=== PATIENT | male | born 1945 | race Caucasian/White ===

== ENCOUNTER → 2016-07-16 | Outpatient (CLI) | payer MEDICARE ==
[2016-07-16 19:00] LABS: MEAN CORPUSCULAR HEMOGLOBIN 31.8 pg (27.0-33.0); MEAN CORPUSCULAR HGB CONC 31.9 g/dl (32.0-36.5); MEAN CORPUSCULAR VOLUME 99.8 fl (80.0-96.0); RED CELL DISTRIBUTION WIDTH 15.3 % (11.5-14.5); WHITE BLOOD COUNT 4.8 K/mm3 (4.0-10.0)
[2016-07-16 19:11] LABS: ANION GAP 7 MEQ/L (8-16); BLOOD UREA NITROGEN 12 MG/DL (7-18); CALCIUM LEVEL 8.7 MG/DL (8.8-10.2); CARBON DIOXIDE LEVEL 32 MEQ/L (21-32); CHLORIDE LEVEL 104 MEQ/L (98-107); CREATININE FOR GFR 0.91 MG/DL (0.70-1.30); GLOMERULAR FILTRATION RATE > 60.0 (>42); GLUCOSE, FASTING 99 MG/DL (83-110); POTASSIUM SERUM 4.4 MEQ/L (3.5-5.1); SODIUM LEVEL 143 MEQ/L (136-145)
== END ==
LOC: M SMT 10:31
PROVIDERS: ATTEND Internal Medicine Cardiovascular Disease
DX: R07.9 Chest pain, unspecified (principal)

== ENCOUNTER → 2016-08-28 | Outpatient (CLI) | payer MEDICARE ==
--- NOTE | 2016-09-03 08:20 | SLEEPCENT ---
DATE OF PROCEDURE: 08/28/2016 ORDERED BY: Nadiya Mcmanus NP Nocturnal polysomnography was performed for evaluation of sleep apnea syndrome symptoms in this patient with a history of nonrestorative sleep, comorbidities of hypertension and atrial fibrillation. 8 hours and 7 minutes of data were reviewed. There were only 132 minutes of sleep identified. Sleep latency was prolonged at 64 minutes. Rapid eye movement (REM) was prolonged at 155 minutes. Sleep architecture was poor with two brief REM periods and prolonged periods of wake over the course of the test. Overall sleep efficiency was thereby reduced at 27.9%. There was very limited REM time and no N3 sleep was seen. The patient's electrocardiogram (EKG) showed an irregular rhythm. Underlying rhythm appeared to be sinus. Frequent ectopy was noted. Average heart rate 45 beats per minute. Heart rate ranged 35-55 beats per minute. Electroencephalogram (EEG) showed fairly normal waveforms for awake and sleep stages. No focal events were identified. There were only 6 respiratory events identified of 10 seconds in duration or greater for an apnea hypopnea index of 2.7. The events were not exclusive to sleep stage nor posture. Snoring was noted at interval and respiratory related arousals occurred 3.2 times per hour. Limb activity was quite prominent during the intervals of sleep and limb movement arousals were borderline at 6.3. IMPRESSION: Equivocal nocturnal polysomnography with snoring and some limb activity. RECOMMENDATION: Given the limited data available, repeat testing is recommended.
== END ==
LOC: M SLEEP 19:36
PROVIDERS: ATTEND Nurse Practitioner Adult Health
DX: G47.30 Sleep apnea, unspecified (principal)

== ENCOUNTER → 2016-10-03 | Outpatient (CLI) | payer MEDICARE ==
[2016-10-03 13:33] LABS: MEAN CORPUSCULAR HGB CONC 32.9 g/dl (32.0-36.5); MEAN CORPUSCULAR VOLUME 100.3 fl (80.0-96.0); RED CELL DISTRIBUTION WIDTH 15.3 % (11.5-14.5); WHITE BLOOD COUNT 4.8 K/mm3 (4.0-10.0)
[2016-10-03 13:57] LABS: ALBUMIN 3.6 GM/DL (3.2-5.2); ALBUMIN/GLOBULIN RATIO 1.24 (1.00-1.93); ALKALINE PHOSPHATASE 63 U/L (45-117); ALT/SGPT 30 U/L (12-78); ANION GAP 7 MEQ/L (8-16); AST/SGOT 26 U/L (15-37); BILIRUBIN,TOTAL 0.8 MG/DL (0.2-1.0); BLOOD UREA NITROGEN 13 MG/DL (7-18); CALCIUM LEVEL 8.3 MG/DL (8.8-10.2); CARBON DIOXIDE LEVEL 32 MEQ/L (21-32); CHLORIDE LEVEL 103 MEQ/L (98-107); CREATININE FOR GFR 0.91 MG/DL (0.70-1.30); GLOMERULAR FILTRATION RATE > 60.0 (>42); GLUCOSE, FASTING 108 MG/DL (83-110); POTASSIUM SERUM 4.2 MEQ/L (3.5-5.1); SODIUM LEVEL 142 MEQ/L (136-145); TOTAL PROTEIN 6.5 GM/DL (6.4-8.2)
== END ==
LOC: M SMT 09:48
PROVIDERS: ATTEND Internal Medicine Cardiovascular Disease
DX: I48.1 Persistent atrial fibrillation (principal); I25.709 Atherosclerosis of coronary artery bypass graft(s), unspecified, with unspecified angina pectoris

== ENCOUNTER → 2017-02-12 | Outpatient (CLI) | payer MEDICARE ==
--- NOTE | 2017-02-12 12:08 | REP ---
Chest two views HISTORY: COPD Comparison: 02/13/2015 The lungs are clear. The heart is normal in size. The pulmonary vasculature is normal in appearance. The bony structure is intact. IMPRESSION: No acute disease. Signed by Keegan Greer MD 02/12/2017 12:00 P
== END ==
LOC: M RAD 11:47
PROVIDERS: ATTEND Nurse Practitioner Adult Health
DX: J44.9 Chronic obstructive pulmonary disease, unspecified (principal)

== ENCOUNTER → 2018-10-21 | Outpatient (CLI) | payer MEDICARE ==
--- NOTE | 2018-10-21 11:13 | REP ---
PA and lateral chest: The lung haong are clear. The cardiac size is normal. The emmanuel, mediastinum, and skeletal structures are unremarkable. There has been interval placement of a two chamber pacemaker. Impression: Pacemaker. Otherwise, essentially negative PA and lateral chest. Electronically Signed by Kale Rao MD 10/21/2018 11:05 A
== END ==
LOC: M SMT 09:48
PROVIDERS: ATTEND Nurse Practitioner Adult Health
DX: Z87.09 Personal history of other diseases of the respiratory system (principal); Z95.0 Presence of cardiac pacemaker

== ENCOUNTER → 2020-06-27 | Outpatient (CLI) | payer MEDICARE ==
[~2020-06-27] MED LIST: ATOR1TAB21 PO; ELIQ5TAB PO; FERR1TAB8 PO; FLEC25TA PO; FLUT1BLS5 IH; GABA-843 PO; INCR1INH IH; METO1TAB87 PO; OMEP-218 PO; TERA5CAP3 PO
[2020-06-27 13:01] LABS: BASO % 0.4 % (0.0-1.0); EOS % 0.4 % (0.0-3.0); HEMATOCRIT 35.3 % (42.0-52.0); HEMOGLOBIN 11.4 g/dl (13.5-17.5); LYMPH # 1.6 10^3/uL (1.5-5.0); MEAN CORPUSCULAR HEMOGLOBIN 31.8 pg (27.0-33.0); MEAN CORPUSCULAR HGB CONC 32.3 g/dl (32.0-36.5); MEAN CORPUSCULAR VOLUME 98.6 fl (80.0-96.0); MONO # 0.6 10^3/uL (0.0-0.8); MONO % 11.8 % (0.0-5.0); NEUTROPHILS # 3.1 10^3/uL (1.5-8.5); NEUTROPHILS % 57.7 % (36.0-66.0); PLATELET COUNT, AUTOMATED 200 10^3/uL (150-450); RED BLOOD COUNT 3.58 10^6/uL (4.30-6.10); WHITE BLOOD COUNT 5.4 10^3/uL (4.0-10.0)
[2020-06-27 13:26] LABS: ALBUMIN 3.5 GM/DL (3.2-5.2); ALT/SGPT 37 U/L (12-78); BILIRUBIN,TOTAL 0.7 MG/DL (0.2-1.0); BLOOD UREA NITROGEN 12 MG/DL (7-18); CALCIUM LEVEL 7.7 MG/DL (8.8-10.2); CARBON DIOXIDE LEVEL 35 MEQ/L (21-32); CHLORIDE LEVEL 103 MEQ/L (98-107); CHOLESTEROL LEVEL 147 MG/DL (<200); CHOLESTEROL RISK RATIO 2.194 (<5); CREATININE FOR GFR 0.84 MG/DL (0.70-1.30); GLOMERULAR FILTRATION RATE > 60.0 (>42); GLUCOSE, FASTING 99 MG/DL (70-100); HDL CHOLESTEROL 67 MG/DL (>40); LDL CHOLESTEROL 68 MG/DL (<100); MAGNESIUM LEVEL 0.9 MG/DL (1.8-2.4); NON-HDL-C 80 MG/DL; NT-PRO BNP 1336 PG/ML (<450); POTASSIUM SERUM 3.9 MEQ/L (3.5-5.1); SODIUM LEVEL 143 MEQ/L (136-145); TOTAL PROTEIN 6.8 GM/DL (6.4-8.2); TRIGLYCERIDES LEVEL 58 MG/DL (<150)
== END ==
LOC: M PLALAB 11:13
PROVIDERS: ATTEND Internal Medicine Cardiovascular Disease
DX: I50.42 Chronic combined systolic (congestive) and diastolic (congestive) heart failure (principal); E78.2 Mixed hyperlipidemia

== ENCOUNTER 2020-06-29 14:40 | Observation (INO) | payer MEDICARE ==
[~2020-06-29] VITALS: Ht 182.9 cm; Wt 83.7 kg
[2020-06-29] MEDS ORDERED: MAG SULF 1GM/100ML (MAG RUN) 1 GM in IV 1 EA IV ONE ×2 (15:45→17:00)
--- NOTE | 2020-06-29 15:57 | REP ---
INDICATION: CHEST PAIN. COMPARISON: October 21, 2018. TECHNIQUE: Portable upright AP chest radiograph. FINDINGS: Lungs are well inflated and clear. A pacemaker is seen in the right heart view of the left side. Heart is not felt to be enlarged. Pulmonary vasculature is not increased. Pleural angles are sharp. No acute bony abnormality is seen.. IMPRESSION: No active disease. Pacemaker in place.. <Electronically signed by Chicho Monroy > 06/29/20 [id number]
[2020-06-29 16:16] LABS: BASO % 0.4 % (0.0-1.0); EOS % 0.6 % (0.0-3.0); HEMATOCRIT 31.3 % (42.0-52.0); LYMPH # 1.6 10^3/uL (1.5-5.0); LYMPH % 30.4 % (24.0-44.0); MEAN CORPUSCULAR HEMOGLOBIN 30.7 pg (27.0-33.0); MEAN CORPUSCULAR HGB CONC 31.9 g/dl (32.0-36.5); MONO # 0.6 10^3/uL (0.0-0.8); MONO % 10.6 % (0.0-5.0); NEUTROPHILS # 3.1 10^3/uL (1.5-8.5); NEUTROPHILS % 57.4 % (36.0-66.0); PLATELET COUNT, AUTOMATED 192 10^3/uL (150-450); RED BLOOD COUNT 3.26 10^6/uL (4.30-6.10); WHITE BLOOD COUNT 5.3 10^3/uL (4.0-10.0)
[2020-06-29] MEDS ORDERED: TERA5CAP3 PO (16:46)
[2020-06-29] MEDS ORDERED: METO1TAB87 PO (16:46)
[2020-06-29] MEDS ORDERED: OMEP-218 PO (16:46)
[2020-06-29] MEDS ORDERED: INCR1INH IH (16:46)
[2020-06-29] MEDS ORDERED: ATOR1TAB21 PO (16:46)
[2020-06-29] MEDS ORDERED: FLUT1BLS5 IH (16:46)
[2020-06-29] MEDS ORDERED: ELIQ5TAB PO (16:46)
[2020-06-29] MEDS ORDERED: GABA-843 PO (16:46)
[2020-06-29] MEDS ORDERED: FLEC25TA PO (16:46)
[2020-06-29 16:52] LABS: ALBUMIN 3.3 GM/DL (3.2-5.2); ALT/SGPT 38 U/L (12-78); BILIRUBIN,DIRECT 0.3 MG/DL (0.0-0.2); BILIRUBIN,TOTAL 0.7 MG/DL (0.2-1.0); BLOOD UREA NITROGEN 16 MG/DL (7-18); CALCIUM LEVEL 7.4 MG/DL (8.8-10.2); CARBON DIOXIDE LEVEL 28 MEQ/L (21-32); CHLORIDE LEVEL 108 MEQ/L (98-107); CK-MB VALUE MASS 1.6 NG/ML (<3.6); CPK CREATINE PHOSPHOKINASE 127 U/L (39-308); CREATININE FOR GFR 0.96 MG/DL (0.70-1.30); GLOMERULAR FILTRATION RATE > 60.0 (>42); GLUCOSE, FASTING 102 MG/DL (70-100); LIPASE 173 U/L (73-393); MAGNESIUM LEVEL 0.9 MG/DL (1.8-2.4); MB/CK RELATIVE INDEX 1.26 (< OR =4); NT-PRO BNP 468 PG/ML (<450); POTASSIUM SERUM 3.5 MEQ/L (3.5-5.1); SODIUM LEVEL 142 MEQ/L (136-145); TOTAL PROTEIN 6.2 GM/DL (6.4-8.2); TROPONIN I < 0.02 NG/ML (< 0.10)
[2020-06-29] MEDS ORDERED: POTASSIUM CHLORIDE 10 MEQ SR TABLET PO ONE (17:00)
[2020-06-29] MEDS ORDERED: IPRATROPIUM 0.5MG/ALBUTEROL 2.5MG INH SOL UD 3ML (DUONEB) NEB PRN (18:15)
--- NOTE | 2020-06-29 18:43 | HPEPDOC ---
General Date of Admission Jun 29, 2020 at 14:41 Date of Service: Jun 29, 2020 Attending Physician: DANNY CHAPMAN DO Chief Complaint The patient is a 75-year-old male admitted with a reason for visit of Hypomagnesemia/Weeknees. Source: Patient History of Present Illness Mr. Beckham is a 75 year old male with atrial fibrillation s/p pacemaker placement and COPD here with weakness and severe hypomagnesemia. He sees Dr. Pugh who is his car repossessor. At baseline, he is active and does activities such as chopping firewood. Due to his COPD, he does get short of breath from time to time, but resolves with inhalers. He has PRN oxygen at home. The past few days, he was feeling more fatigued than normal. Denies worsening dyspnea, cough, fever, or chest pain. He went to have lab work done 2 days ago and his magnesium was critically low at 0.9. His car repossessor (Dr. Pugh) told him to stop Flecanide and come to the ER. While in the ED, repeat magnesium level also demonstrated a result of 0.9. He does not remember when was the last time his medications were changed, but tells me that there has been no recent changes. He does drink alcohol about 5 to 7 times a week. Home Medications Scheduled Apixaban (Eliquis) 5 Mg Tablet, 5 MG PO BID, (Reported) Atorvastatin Calcium (Atorvastatin Calcium) 20 Mg Tablet, 20 MG PO DAILY, (Reported) Flecainide Acetate (Flecainide Acetate) 50 Mg Tablet, 50 MG PO BID, (Reported) Fluticasone Propion/Salmeterol (Fluticasone-Salmeterol 250-50) 1 Each Blst.w. dev, 250 MCG IH BID, (Reported) Gabapentin (Gabapentin) 300 Mg Capsule, 300 MG PO BID, (Reported) Metoprolol Tartrate (Metoprolol Tartrate) 25 Mg Tablet, 12.5 MG PO BID, (Reported) Omeprazole (Omeprazole) 20 Mg Capsule.dr, 20 MG PO DAILY, (Reported) Terazosin HCl (Terazosin HCl) 5 Mg Capsule, 5 MG PO DAILY, (Reported) Umeclidinium [place] (Incruse Ellipta) 62.5 Mcg Blst.w.dev, 62.5 MCG IH DAILY, (Reported) Allergies Coded Allergies: No Known Allergies (Unverified , 06/29/20) Past Medical History Medical History 1. Atrial fibrillation 2. Pacemaker placement 3. COPD Surgical History 1. Pacemaker placement 2. Hernia repair Family History Denies medical conditions in parents Social History * Smoker: former Smoker Alcohol: other (Drinks 5 to 7 days a week) Drugs: denies A-FIB/CHADSVASC A-FIB History Current/History of A-Fib/PAF?: Yes Current PO Anticoag Therapy: Yes Review of Systems Constitutional: Reports: Fatigue; Denies: Chills, Fever Eyes: Denies: Vision change ENT: Denies: Sore Throat Skin: Denies: Rash Pulmonary: Denies: Dyspnea, Cough Cardiovascular: Denies: Chest Pain, Palpitations Gastrointestinal: Reports: Diarrhea (chronic); Denies: Nausea, Abdominal Pain Genitourinary: Denies: Dysuria Hematologic: Denies: Bruising Neurological: Reports: Other Symptoms (parethesias in hands occasionally) Physical Examination General Exam: Positive: Alert, Cooperative Eye Exam: Positive: EOMI; Negative: Sclera icteric ENT Exam: Positive: Atraumatic Neck Exam: Positive: Supple Chest Exam: Positive: Clear to auscultation Heart Exam: Positive: Rate Normal Abdomen Exam: Positive: Normal bowel sounds, Soft; Negative: Tenderness Extremity Exam: Negative: Edema Neuro Exam: Positive: Cranial Nerves 3-12 NL Psych Exam: Positive: Mental status NL, Mood NL Vital Signs Vital Signs Date Time Temp Pulse Resp B/P (MAP) Pulse Ox O2 Delivery O2 Flow Rate FiO2 06/29/20 17:30 161/85 (110) 06/29/20 17:25 67 18 93 Room Air 06/29/20 14:41 98.1 Laboratory Data Labs 24H Laboratory Tests 2 06/29/20 15:42: Immature Granulocyte % (Auto) 0.6, Neutrophils (%) (Auto) 57.4, Lymphocytes (%) (Auto) 30.4, Monocytes (%) (Auto) 10.6H, Eosinophils (%) (Auto) 0.6, Basophils (%) (Auto) 0.4, Neutrophils # (Auto) 3.1, Lymphocytes # (Auto) 1.6, Monocytes # (Auto) 0.6, Eosinophils # (Auto) 0.0, Basophils # (Auto) 0.0, Nucleated Red Blood Cells % (auto) 0.0, Anion Gap 6L, Glomerular Filtration Rate > 60.0, Calcium Level 7.4L, Magnesium Level 0.9*L, Total Bilirubin 0.7, Direct Bilirubin 0.3H, Aspartate Amino Transf (AST/SGOT) 41H, Alanine Aminotransferase (ALT/SGPT) 38, Alkaline Phosphatase 71, Total Creatine Kinase 127, Creatine Kinase MB 1.6, Creatine Kinase MB Relative Index 1.26, Troponin I < 0.02, OW-Jsr-[id number]-Type Natriuretic Peptide 468H, Total Protein 6.2L, Albumin 3.3, Albumin/Globulin Ratio 1.1, Lipase 173, Thyroid Stimulating Hormone (TSH) 1.130 06/29/20 17:21: CBC/BMP Laboratory Tests 06/29/20 15:42 Assessment/Plan Mr. Beckham is a 75 year old male with atrial fibrillation s/p pacemaker placement and COPD here with weakness and severe hypomagnesemia. Flecainide will be held and magnesium will be repleted. PPI will be held as it may be one of the causes of hypomagnesemia. He denies any current GERD like symptoms. Alcohol use may be another cause of hypomagnesemia. He may need to be on PO magnesium on discharge with outpatient following magnesium levels Plan / VTE VTE Prophylaxis Ordered?: Yes Plan Plan 1. Hypomagnesemia -On admission, mag level 0.9 -Replete with IV mag sulf -Repeat magnesium level tomorrow -Hold PPI, may need to be on PO magnesium outpatient -Monitor on tele 2. Atrial fibrillation s/p pacemaker -Flecanide will be held -Check EKG tomorrow -Continue Lopressor and Eliquis 3. Alcohol use -Drinks daily -Thiamine, folic acid, multivitamin -May be a cause of hypomagnesemia, may need PO magnesium outpatient 4. COPD -Stable -Continue LABA, LAMA, and ICS -Add on PRN duonebs 5. BPH -Continue Terazosin 6. DVT ppx -On Eliquis DANNY CHAPMAN DO Jun 29, 2020 18:43
[2020-06-29] MEDS ORDERED: FERR1TAB8 PO (18:54)
[2020-06-29] MEDS: THIAMINE 100 MG TAB PO SCH (20:34)
[2020-06-29] MEDS: MAG SULF 1GM/100ML (MAG RUN) 1 GM in IV 1 EA IV SCH ×2 (20:34→21:26)
[2020-06-29] MEDS: APIXABAN 5 MG TAB (ELIQUIS) PO SCH (20:34)
[2020-06-29] MEDS: ADVAIR HFA 115/21MCG INHALER INH SCH (20:34)
[2020-06-29] MEDS: GABAPENTIN 300 MG CAP PO SCH (20:34)
[2020-06-29] MEDS: METOPROLOL TART 12.5 MG PER 1/2 TAB PO SCH (21:02)
[2020-06-29 23:20] VITALS: BP 158/78
[2020-06-30 04:00] VITALS: BP 160/88
[2020-06-30 05:04] LABS: HEMATOCRIT 29.7 % (42.0-52.0); HEMOGLOBIN 9.9 g/dl (13.5-17.5); MEAN CORPUSCULAR HEMOGLOBIN 31.9 pg (27.0-33.0); MEAN CORPUSCULAR HGB CONC 33.3 g/dl (32.0-36.5); MEAN CORPUSCULAR VOLUME 95.8 fl (80.0-96.0); PLATELET COUNT, AUTOMATED 188 10^3/uL (150-450); WHITE BLOOD COUNT 5.4 10^3/uL (4.0-10.0)
[2020-06-30 05:25] LABS: BLOOD UREA NITROGEN 11 MG/DL (7-18); CALCIUM LEVEL 7.5 MG/DL (8.8-10.2); CARBON DIOXIDE LEVEL 29 MEQ/L (21-32); CHLORIDE LEVEL 108 MEQ/L (98-107); CREATININE FOR GFR 0.74 MG/DL (0.70-1.30); GLOMERULAR FILTRATION RATE > 60.0 (>42); GLUCOSE, FASTING 100 MG/DL (70-100); MAGNESIUM LEVEL 1.7 MG/DL (1.8-2.4); POTASSIUM SERUM 3.6 MEQ/L (3.5-5.1); SODIUM LEVEL 144 MEQ/L (136-145)
[2020-06-30] MEDS: ADVAIR HFA 115/21MCG INHALER INH SCH (07:40)
[2020-06-30 08:00] VITALS: BP 148/80
[2020-06-30] MEDS ORDERED: TIOTROPIUM INHALER/CAPSULE (SPIRIVA) INH SCH (08:00)
[2020-06-30] MEDS ORDERED: TERAZOSIN 5 MG CAP PO SCH (09:00)
[2020-06-30] MEDS ORDERED: MULTIVITAMINS/MINERALS THERAP 1 TAB PO SCH (09:00)
[2020-06-30] MEDS ORDERED: ATORVASTATIN 20 MG TAB PO SCH (09:00)
[2020-06-30] MEDS ORDERED: FOLIC ACID 1 MG TAB PO SCH (09:00)
[2020-06-30] MEDS ORDERED: POTASSIUM CHLORIDE 10 MEQ SR TABLET PO ONE (09:00)
[2020-06-30] MEDS: MAG SULF 1GM/100ML (MAG RUN) 1 GM in IV 1 EA IV SCH ×2 (09:11→10:39)
[2020-06-30] MEDS: GABAPENTIN 300 MG CAP PO SCH (09:11)
[2020-06-30] MEDS: METOPROLOL TART 12.5 MG PER 1/2 TAB PO SCH (09:11)
[2020-06-30] MEDS: APIXABAN 5 MG TAB (ELIQUIS) PO SCH (09:11)
[2020-06-30] MEDS: THIAMINE 100 MG TAB PO SCH (09:12)
[2020-06-30] MEDS ORDERED: MAGN400T2 PO (09:27)
[2020-06-30] MEDS ORDERED: TERA5CAP3 PO (09:31)
--- NOTE | 2020-06-30 22:32 | DS.PDOC ---
Discharge Summary General Date of Admission Jun 29, 2020 at 14:41 Date of Discharge Jun 30, 2020 Attending Physician: DANNY CHAPMAN DO Discharge Summary PROCEDURES PERFORMED DURING STAY: None ADMITTING DIAGNOSES: 1. Hypomagnesemia 2. Atrial fibrillation s/p pacemaker 3. Alcohol use 4. COPD 5. BPH DISCHARGE DIAGNOSES: 1. Hypomagnesemia 2. Atrial fibrillation s/p pacemaker 3. Alcohol use 4. COPD 5. BPH COMPLICATIONS/CHIEF COMPLAINT: Hypomagnesemia/Weeknees. HISTORY OF PRESENT ILLNESS: Mr. Beckham is a 75 year old male with atrial fibrillation s/p pacemaker placement and COPD here with weakness and severe hypomagnesemia. He sees Dr. 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 At baseline, he is active and does activities such as chopping firewood. Due to his COPD, he does get short of breath from time to time, but resolves with inhalers. He has PRN oxygen at home. The past few days, he was feeling more fatigued than normal. Denies worsening dyspnea, cough, fever, or chest pain. He went to have lab work done 2 days ago and his magnesium was critically low at 0.9. His elect rophysiologist (Dr. Pugh) told him to stop Flecanide and come to the ER. While in the ED, repeat magnesium level also demonstrated a result of 0.9. He does not remember when was the last time his medications were changed, but tells me that there has been no recent changes. He does drink alcohol about 5 to 7 times a week. HOSPITAL COURSE: During his hospitalization omeprazole was held. Patient was given 4gm of magnesium sulfate which increased the magnesium level from 0.9 to 1.7. This morning, patient was given another 2mg of magnesium sulfate for a target goal of magnesium >2. Another 40mEq of KCl was given to have the potassium achieve a level >4. Otherwise Flecainide was held. Overnight, there was 2 episodes of NSVT. I called the answering service to Dr. Pugh's group and explained the situation. They recommended restarted the Flecainide and discharging the patient on Magnesium Oxide. This morning, the patient felt well. Denied any lightheadedness, chest pain, dyspnea, or abdominal pain. I suspect that the hypomagnesemia was secondary to alcohol use and PPI. I discharged the patient with instructions to stop the PPI DISCHARGE MEDICATIONS: Please see below. ALLERGIES: Please see below. PHYSICAL EXAMINATION ON DISCHARGE: VITAL SIGNS: Please see below. GENERAL: Comfortable, in no apparent distress HEENT: EOMI, sclera clear NECK: Supple CARDIOVASCULAR EXAMINATION: Regular rate and rhythm RESPIRATORY EXAMINATION: Lungs clear to auscultation bilaterally ABDOMINAL EXAMINATION: Soft, non-tender, normal bowel sounds EXTREMITIES: No significant pitting edema SKIN: Warm and dry NEUROLOGICAL EXAMINATION: CN 3-12 grossly intact PSYCHIATRIC EXAMINATION: Normal mood and affect LABORATORY DATA: Please see below. IMAGING: CXR No active disease. Pacemaker in place. PROGNOSIS: Good ACTIVITY: As tolerated. DIET: As tolerated DISCHARGE PLAN: Home DISPOSITION: Home, Self-Care. DISCHARGE INSTRUCTIONS: 1. Follow up with your PCP within 1 week 2. Follow up with your social organization professor-EP within 1 week 3. Discuss with your PCP or social organization professor-EP about monitoring your magnesium levels DISCHARGE CONDITION: Stable. Total time spent on discharge planning, discharge summary, and medication reconciliation: 55 minutes Vital Signs/I&Os Vital Signs Date Time Temp Pulse Resp B/P (MAP) Pulse Ox O2 Delivery O2 Flow Rate FiO2 06/30/20 08:00 98.9 54 18 148/80 (102) 93 Room Air I&O- Last 24 Hours up to 6 AM 06/30/20 06:00 Intake Total 400 ml Output Total 0 ml Balance 400 ml Laboratory Data Labs 24H Laboratory Tests 2 06/30/20 04:36: Nucleated Red Blood Cells % (auto) 0.0, Anion Gap 7L, Glomerular Filtration Rate > 60.0, Calcium Level 7.5L, Magnesium Level 1.7L CBC/BMP Laboratory Tests 06/30/20 04:36 Discharge Medications Scheduled Apixaban (Eliquis) 5 Mg Tablet, 5 MG PO BID, (Reported) Atorvastatin Calcium (Atorvastatin Calcium) 20 Mg Tablet, 20 MG PO DAILY, (Reported) Ferrous Sulfate (Ferrous Sulfate) 325 Mg Tablet, 325 MG PO DAILY, (Reported) Flecainide Acetate (Flecainide Acetate) 50 Mg Tablet, 50 MG PO BID, (Reported) Fluticasone Propion/Salmeterol (Fluticasone-Salmeterol 250-50) 1 Each Blst.w.dev, 250 MCG IH BID, (Reported) Gabapentin (Gabapentin) 300 Mg Capsule, 300 MG PO BID, (Reported) Magnesium Oxide (Magnesium Oxide) 400 Mg Tablet, 400 MG PO DAILY Metoprolol Tartrate (Metoprolol Tartrate) 25 Mg Tablet, 12.5 MG PO BID, (Reported) Terazosin HCl (Terazosin HCl) 5 Mg Capsule, 5 MG PO DAILY Umeclidinium [place] (Incruse Ellipta) 62.5 Mcg Blst.w.dev, 62.5 MCG IH DAILY, (Reported) Allergies Coded Allergies: No Known Allergies (Unverified , 06/29/20) DANNY CHAPMAN DO Jun 30, 2020 22:32
--- NOTE | 2020-07-01 12:15 | ECGEPIP ---
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
--- NOTE | 2020-07-02 08:21 | ECGEPIP ---
[facility] Test Date: 2020-06-30 Pat Name: YAIR HANLEY Department: Room: [place] [address] Gender: Male Rn [place]: [place] : 1945 Requested By: DANNY Garg Order Number: [id number] Reading MD: Alex Levine Measurements Intervals [place] Rate: 56 P: 107 [place]: 213 QRS: 37 QRSD: 106 T: 37 QT: 432 QTc: 418 Interpretive Statements Consistent atrially paced rhythm Spontaneous AV conduction Marginal ST scooping No change from 06/29/20 Electronically Signed on 07-02-2020 8:21:14 EST by Alex Levine
== END 2020-06-30 11:40 | disposition home or self-care (01) ==
LOC: M ED 14:40 → M ED INP 14:41 → M PCU 23:17
PROVIDERS: ADMIT Internal Medicine; ATTEND Internal Medicine
DX: E83.42 Hypomagnesemia (principal); R53.1 Weakness; I48.91 Unspecified atrial fibrillation; Z95.0 Presence of cardiac pacemaker; F10.10 Alcohol abuse, uncomplicated; J44.9 Chronic obstructive pulmonary disease, unspecified; N40.0 Benign prostatic hyperplasia without lower urinary tract symptoms; Z79.01 Long term (current) use of anticoagulants; Z79.899 Other long term (current) drug therapy; Z87.891 Personal history of nicotine dependence
CPT/HCPCS: 36415; 71045; 80048; 80076; 82550; 82553; 83690; 83735; 83880; 84443; 84484; 85025; 85027; 93005; 93041; 94640; 94760; 96360; 96361; 99285; G0378; J3475; U0002

== ENCOUNTER → 2020-07-04 | Outpatient (CLI) | payer MEDICARE ==
[~2020-07-04] MED LIST changes: +MAGN400T2 PO
[2020-07-04 14:14] LABS: BLOOD UREA NITROGEN 12 MG/DL (7-18); CALCIUM LEVEL 9.3 MG/DL (8.8-10.2); CARBON DIOXIDE LEVEL 30 MEQ/L (21-32); CHLORIDE LEVEL 105 MEQ/L (98-107); CREATININE FOR GFR 0.82 MG/DL (0.70-1.30); GLOMERULAR FILTRATION RATE > 60.0 (>42); GLUCOSE, FASTING 100 MG/DL (70-100); MAGNESIUM LEVEL 1.5 MG/DL (1.8-2.4); POTASSIUM SERUM 4.8 MEQ/L (3.5-5.1); SODIUM LEVEL 141 MEQ/L (136-145)
== END ==
LOC: M PLALAB 10:43
PROVIDERS: ATTEND Internal Medicine Cardiovascular Disease
DX: I50.40 Unspecified combined systolic (congestive) and diastolic (congestive) heart failure (principal)

== ENCOUNTER → 2020-08-16 | Outpatient (CLI) | payer MEDICARE ==
[~2020-08-16] MED LIST changes: +GABA-282 PO; -GABA-843 PO
[2020-08-16 13:36] LABS: BASO % 0.2 % (0.0-1.0); EOS % 0.3 % (0.0-3.0); HEMOGLOBIN 11.1 g/dl (13.5-17.5); LYMPH # 1.9 10^3/uL (1.5-5.0); LYMPH % 30.3 % (24.0-44.0); MEAN CORPUSCULAR HEMOGLOBIN 30.8 pg (27.0-33.0); MEAN CORPUSCULAR HGB CONC 31.7 g/dl (32.0-36.5); MEAN CORPUSCULAR VOLUME 97.2 fl (80.0-96.0); MONO # 0.7 10^3/uL (0.0-0.8); MONO % 10.8 % (0.0-5.0); NEUTROPHILS # 3.7 10^3/uL (1.5-8.5); NEUTROPHILS % 57.8 % (36.0-66.0); PLATELET COUNT, AUTOMATED 218 10^3/uL (150-450); WHITE BLOOD COUNT 6.4 10^3/uL (4.0-10.0)
[2020-08-16 13:52] LABS: CHOLESTEROL RISK RATIO 1.95 (<5)
[2020-08-16 13:56] LABS: ALBUMIN 3.7 GM/DL (3.2-5.2); ALT/SGPT 38 U/L (12-78); BILIRUBIN,TOTAL 0.4 MG/DL (0.2-1.0); BLOOD UREA NITROGEN 19 MG/DL (7-18); CALCIUM LEVEL 9.5 MG/DL (8.8-10.2); CARBON DIOXIDE LEVEL 28 MEQ/L (21-32); CHLORIDE LEVEL 103 MEQ/L (98-107); CHOLESTEROL LEVEL 133 MG/DL (<200); CHOLESTEROL RISK RATIO 2.216 (<5); CREATININE FOR GFR 0.98 MG/DL (0.70-1.30); GLOMERULAR FILTRATION RATE > 60.0 (>42); GLUCOSE, FASTING 107 MG/DL (70-100); HDL CHOLESTEROL 60 MG/DL (>40); LDL CHOLESTEROL 58 MG/DL (<100); MAGNESIUM LEVEL 1.5 MG/DL (1.8-2.4); NON-HDL-C 73 MG/DL; NT-PRO BNP 257 PG/ML (<450); POTASSIUM SERUM 4.5 MEQ/L (3.5-5.1); SODIUM LEVEL 140 MEQ/L (136-145); TRIGLYCERIDES LEVEL 74 MG/DL (<150)
== END ==
LOC: M PLALAB 10:42
PROVIDERS: ATTEND Internal Medicine Cardiovascular Disease
DX: E78.2 Mixed hyperlipidemia (principal); D64.9 Anemia, unspecified; I10 Essential (primary) hypertension; I48.91 Unspecified atrial fibrillation; E83.42 Hypomagnesemia

== ENCOUNTER → 2020-10-09 | Outpatient (CLI) | payer MEDICARE ==
[2020-10-09 16:09] LABS: BLOOD UREA NITROGEN 16 MG/DL (7-18); CALCIUM LEVEL 9.3 MG/DL (8.8-10.2); CARBON DIOXIDE LEVEL 33 MEQ/L (21-32); CHLORIDE LEVEL 102 MEQ/L (98-107); CREATININE FOR GFR 1.11 MG/DL (0.70-1.30); GLOMERULAR FILTRATION RATE > 60.0 (>42); GLUCOSE, FASTING 100 MG/DL (70-100); MAGNESIUM LEVEL 1.4 MG/DL (1.8-2.4); NT-PRO BNP 1118 PG/ML (<450); POTASSIUM SERUM 4.2 MEQ/L (3.5-5.1); SODIUM LEVEL 138 MEQ/L (136-145)
== END ==
LOC: M PLALAB 13:13
PROVIDERS: ATTEND Internal Medicine Cardiovascular Disease
DX: I50.42 Chronic combined systolic (congestive) and diastolic (congestive) heart failure (principal)

== ENCOUNTER → 2020-11-01 | Outpatient (REF) | payer MEDICARE ==
[2020-11-01 10:45] LABS: BLOOD UREA NITROGEN 26 MG/DL (7-18); CARBON DIOXIDE LEVEL 32 MEQ/L (21-32); CHLORIDE LEVEL 104 MEQ/L (98-107); CREATININE FOR GFR 0.96 MG/DL (0.70-1.30); GLOMERULAR FILTRATION RATE > 60.0 (>42); GLUCOSE, FASTING 107 MG/DL (70-100); MAGNESIUM LEVEL 2.3 MG/DL (1.8-2.4); POTASSIUM SERUM 4.5 MEQ/L (3.5-5.1); SODIUM LEVEL 140 MEQ/L (136-145)
== END ==
LOC: M PLALAB 09:53
PROVIDERS: ATTEND Internal Medicine Cardiovascular Disease
DX: I50.9 Heart failure, unspecified (principal); I48.91 Unspecified atrial fibrillation

== ENCOUNTER → 2020-11-12 | Outpatient (CLI) | payer MEDICARE ==
--- NOTE | 2020-11-12 11:00 | REP ---
INDICATION: DORSALGIA. COMPARISON: Chest radiographs 10/21/2018. TECHNIQUE: Three AP and lateral views thoracic spine. FINDINGS: There is a mild to moderate compression deformity of T12 vertebral body which is new since the prior chest radiographs, but of indeterminate age. There is no other compression deformity. There is normal alignment and thoracic kyphosis. There is mild diffuse spurring. The disc spaces are well preserved. The posterior elements are intact. There is mild curvature toward the right. There is diffuse osteopenia. IMPRESSION: [id number] compression deformity of the T12 vertebral body of indeterminate age but new since the prior chest radiographs 10/21/2018. <Electronically signed by Kale Talbot > 11/12/20 [id number]
== END ==
LOC: M WUC 10:12
PROVIDERS: ATTEND Internal Medicine
DX: M54.9 Dorsalgia, unspecified (principal)

== ENCOUNTER → 2020-12-04 | Outpatient (REF) | payer MEDICARE ==
[2020-12-04 14:10] LABS: HEMATOCRIT 37.3 % (42.0-52.0); HEMOGLOBIN 11.9 g/dl (13.5-17.5); MEAN CORPUSCULAR HEMOGLOBIN 30.3 pg (27.0-33.0); MEAN CORPUSCULAR HGB CONC 31.9 g/dl (32.0-36.5); MEAN CORPUSCULAR VOLUME 94.9 fl (80.0-96.0); PLATELET COUNT, AUTOMATED 203 10^3/uL (150-450); RED BLOOD COUNT 3.93 10^6/uL (4.30-6.10); WHITE BLOOD COUNT 5.5 10^3/uL (4.0-10.0)
[2020-12-04 14:39] LABS: ALBUMIN 3.5 GM/DL (3.2-5.2); ALT/SGPT 30 U/L (12-78); BILIRUBIN,TOTAL 0.7 MG/DL (0.2-1.0); BLOOD UREA NITROGEN 16 MG/DL (7-18); CALCIUM LEVEL 9.7 MG/DL (8.8-10.2); CARBON DIOXIDE LEVEL 26 MEQ/L (21-32); CHLORIDE LEVEL 105 MEQ/L (98-107); CREATININE FOR GFR 0.88 MG/DL (0.70-1.30); GLOMERULAR FILTRATION RATE > 60.0 (>42); GLUCOSE, FASTING 102 MG/DL (70-100); MAGNESIUM LEVEL 1.6 MG/DL (1.8-2.4); NT-PRO BNP 427 PG/ML (<450); POTASSIUM SERUM 5.2 MEQ/L (3.5-5.1); SODIUM LEVEL 137 MEQ/L (136-145); TOTAL PROTEIN 7.1 GM/DL (6.4-8.2)
== END ==
LOC: M PLALAB 12:38
PROVIDERS: ATTEND Internal Medicine Cardiovascular Disease
DX: I50.42 Chronic combined systolic (congestive) and diastolic (congestive) heart failure (principal); E78.2 Mixed hyperlipidemia; Z79.01 Long term (current) use of anticoagulants

== ENCOUNTER → 2021-01-22 | Outpatient (CLI) | payer MEDICARE ==
[~2021-01-22] MED LIST changes: +OMEP-173 PO; -OMEP-218 PO
[2021-01-22 14:15] LABS: BLOOD UREA NITROGEN 13 MG/DL (7-18); CARBON DIOXIDE LEVEL 28 MEQ/L (21-32); CHLORIDE LEVEL 108 MEQ/L (98-107); CREATININE FOR GFR 0.83 MG/DL (0.70-1.30); GLOMERULAR FILTRATION RATE > 60.0 (>42); GLUCOSE, FASTING 89 MG/DL (70-100); MAGNESIUM LEVEL 1.6 MG/DL (1.8-2.4); POTASSIUM SERUM 4.7 MEQ/L (3.5-5.1); SODIUM LEVEL 142 MEQ/L (136-145)
== END ==
LOC: M PLALAB 09:52
PROVIDERS: ATTEND Internal Medicine Cardiovascular Disease
DX: I50.40 Unspecified combined systolic (congestive) and diastolic (congestive) heart failure (principal)

== ENCOUNTER → 2021-03-07 | Outpatient (CLI) | payer MEDICARE ==
[~2021-03-07] MED LIST changes: -OMEP-173 PO; +OMEP-218 PO
[2021-03-07 16:02] LABS: BLOOD UREA NITROGEN 15 MG/DL (7-18); CALCIUM LEVEL 9.2 MG/DL (8.8-10.2); CARBON DIOXIDE LEVEL 32 MEQ/L (21-32); CHLORIDE LEVEL 107 MEQ/L (98-107); CREATININE FOR GFR 0.79 MG/DL (0.70-1.30); GLOMERULAR FILTRATION RATE > 60.0 (>42); GLUCOSE, FASTING 98 MG/DL (70-100); MAGNESIUM LEVEL 1.7 MG/DL (1.8-2.4); POTASSIUM SERUM 4.8 MEQ/L (3.5-5.1); SODIUM LEVEL 141 MEQ/L (136-145)
== END ==
LOC: M PLALAB 09:55
PROVIDERS: ATTEND Internal Medicine Cardiovascular Disease
DX: I50.40 Unspecified combined systolic (congestive) and diastolic (congestive) heart failure (principal)

== ENCOUNTER → 2022-02-06 | Outpatient (CLI) | payer MEDICARE ==
[~2022-02-06] MED LIST changes: +OMEP-173 PO; -OMEP-218 PO
== END ==
LOC: M RAD 10:41
PROVIDERS: ATTEND Nurse Practitioner Adult Health
DX: R91.8 Other nonspecific abnormal finding of lung field (principal); J43.9 Emphysema, unspecified; I70.0 Atherosclerosis of aorta

== ENCOUNTER → 2022-03-24 | Outpatient (CLI) | payer MEDICARE | LOC: M PLARAD 09:30 | PROVIDERS: ATTEND Nurse Practitioner Adult Health | DX: R91.1 Solitary pulmonary nodule (principal) | CPT/HCPCS: 78815; A9552 ==

== ENCOUNTER 2022-07-14 10:38 | Inpatient (IN) | payer MEDICARE ==
[~2022-07-14] VITALS: Ht 188 cm; Wt 78.6 kg
[2022-07-14] MEDS: FOLIC ACID 1MG TAB PO SCH (09:00)
[2022-07-14] MEDS: MULTIVITAMINS/MINERALS THERAP 1 TAB PO SCH (09:00)
[2022-07-14 11:31] LABS: BASO % 0.3 % (0.0-1.0); EOS % 0.1 % (0.0-3.0); HEMATOCRIT 35.5 % (42.0-52.0); HEMOGLOBIN 11.4 g/dl (13.5-17.5); LYMPH % 19.8 % (24.0-44.0); MEAN CORPUSCULAR HEMOGLOBIN 31.8 pg (27.0-33.0); MEAN CORPUSCULAR HGB CONC 32.1 g/dl (32.0-36.5); MEAN CORPUSCULAR VOLUME 98.9 fl (80.0-96.0); MONO # 0.8 10^3/uL (0.0-0.8); MONO % 8.2 % (2.0-8.0); NEUTROPHILS # 7.1 10^3/uL (1.5-8.5); NEUTROPHILS % 70.5 % (36.0-66.0); PLATELET COUNT, AUTOMATED 291 10^3/uL (150-450); RED BLOOD COUNT 3.59 10^6/uL (4.30-6.10); WHITE BLOOD COUNT 10.1 10^3/uL (4.0-10.0)
[2022-07-14 11:53] LABS: BLOOD UREA NITROGEN 24 MG/DL (9-23); CARBON DIOXIDE LEVEL 27 MMOL/L (20-31); CHLORIDE LEVEL 102 MMOL/L (98-107); CREATININE FOR GFR 1.09 MG/DL (0.70-1.30); GLOMERULAR FILTRATION RATE > 60.0 (>42); GLUCOSE, FASTING 115 MG/DL (74-106); POTASSIUM SERUM 4.6 MMOL/L (3.5-5.1); SODIUM LEVEL 138 MMOL/L (136-145)
[2022-07-14] MEDS: NS 1,000 ML IV SCH (12:04)
[2022-07-14] MEDS: GASTROGRAFIN SOLUTION 30ML PO SCH ×2 (12:43→12:44)
[2022-07-14 13:06] LABS: RSV AMPLIFICATION NEGATIVE (NEGATIVE)
[2022-07-14] MEDS ORDERED: ISOVUE-370 76% 100ML VIAL As Ordered ONE (13:58)
[2022-07-14 15:45] LABS: MAGNESIUM LEVEL 1.3 MG/DL (1.8-2.4)
[2022-07-14] MEDS ORDERED: LORazepam 2 MG TAB PO PRN (16:20)
[2022-07-14] MEDS: MAG SULF 1GM/100ML (MAG RUN) 1 GM in IV 1 EA IV SCH ×4 (16:46→22:42)
[2022-07-14] MEDS ORDERED: SPIR1AER INH (17:33)
[2022-07-14] MEDS ORDERED: ALBU8.5H INH (17:33)
[2022-07-14] MEDS ORDERED: MAGN500T12 PO (17:44)
[2022-07-14] MEDS ORDERED: TERA2CAP3 PO (17:45)
[2022-07-14] MEDS ORDERED: B-12100021 PO (17:46)
[2022-07-14] MEDS ORDERED: HOME MED LIST COMPLETE! XX SCH (17:50)
[2022-07-14 19:03] LABS: HEMATOCRIT 30.4 % (42.0-52.0); HEMOGLOBIN 9.9 g/dl (13.5-17.5)
[2022-07-14] MEDS: SYMBICORT 160/4.5MCG INHALER 6GM INH SCH (19:41)
[2022-07-14 20:33] VITALS: BP 130/75
[2022-07-14] MEDS: GABAPENTIN 300 MG CAP PO SCH (20:55)
[2022-07-14] MEDS: PANTOPRAZOLE 40MG VIAL IV SCH (20:56)
[2022-07-14] MEDS: THIAMINE 100 MG TAB PO SCH (20:56)
[2022-07-14 23:58] VITALS: BP 113/70
[2022-07-15] MEDS: NS 1,000 ML IV SCH (01:15)
[2022-07-15 03:47] VITALS: BP 120/68
[2022-07-15 04:46] LABS: HEMATOCRIT 29.8 % (42.0-52.0); HEMOGLOBIN 9.8 g/dl (13.5-17.5)
[2022-07-15 05:13] LABS: MAGNESIUM LEVEL 1.9 MG/DL (1.8-2.4)
[2022-07-15 05:15] LABS: BLOOD UREA NITROGEN 14 MG/DL (9-23); CALCIUM LEVEL 8.5 MG/DL (8.3-10.6); CARBON DIOXIDE LEVEL 28 MMOL/L (20-31); CHLORIDE LEVEL 105 MMOL/L (98-107); CREATININE FOR GFR 0.87 MG/DL (0.70-1.30); GLOMERULAR FILTRATION RATE > 60.0 (>42); GLUCOSE, FASTING 102 MG/DL (74-106); POTASSIUM SERUM 4.5 MMOL/L (3.5-5.1); SODIUM LEVEL 140 MMOL/L (136-145)
[2022-07-15 07:43] LABS: MEAN CORPUSCULAR HEMOGLOBIN 31.4 pg (27.0-33.0); MEAN CORPUSCULAR HGB CONC 31.9 g/dl (32.0-36.5); MEAN CORPUSCULAR VOLUME 98.4 fl (80.0-96.0); PLATELET COUNT, AUTOMATED 244 10^3/uL (150-450); RED BLOOD COUNT 3.09 10^6/uL (4.30-6.10); WHITE BLOOD COUNT 5.5 10^3/uL (4.0-10.0)
[2022-07-15 07:49] VITALS: BP 150/80
[2022-07-15] MEDS ORDERED: TIOTROPIUM INHALER/CAPSULE (SPIRIVA) INH SCH (08:00)
[2022-07-15] MEDS: SYMBICORT 160/4.5MCG INHALER 6GM INH SCH (08:01)
[2022-07-15 08:27] VITALS: BP 150/80
[2022-07-15] MEDS: THIAMINE 100 MG TAB PO SCH (08:27)
[2022-07-15] MEDS: PANTOPRAZOLE 40MG VIAL IV SCH (08:27)
[2022-07-15] MEDS: MULTIVITAMINS/MINERALS THERAP 1 TAB PO SCH (08:27)
[2022-07-15] MEDS: GABAPENTIN 300 MG CAP PO SCH (08:27)
[2022-07-15] MEDS: FOLIC ACID 1MG TAB PO SCH (08:27)
[2022-07-15] MEDS ORDERED: TERAZOSIN 1 MG CAP PO SCH (09:00)
[2022-07-15] MEDS ORDERED: ATORVASTATIN 20 MG TAB PO SCH (09:00)
[2022-07-15 10:58] LABS: HEMATOCRIT 30.7 % (42.0-52.0); HEMOGLOBIN 10.3 g/dl (13.5-17.5)
[2022-07-15 11:34] VITALS: BP 120/72
== END 2022-07-15 14:05 | disposition home or self-care (01) | DRG 378 ==
LOC: M ED 10:38 → M ED INP 17:41 → M PCU 20:39
PROVIDERS: ADMIT Internal Medicine; ATTEND Internal Medicine
DX: K57.93 Diverticulitis of intestine, part unspecified, without perforation or abscess with bleeding (principal); I48.20 Chronic atrial fibrillation, unspecified; D62 Acute posthemorrhagic anemia; J44.9 Chronic obstructive pulmonary disease, unspecified; I10 Essential (primary) hypertension; K21.9 Gastro-esophageal reflux disease without esophagitis; E83.42 Hypomagnesemia; Z79.01 Long term (current) use of anticoagulants; F10.10 Alcohol abuse, uncomplicated; Z95.0 Presence of cardiac pacemaker; Z79.899 Other long term (current) drug therapy

== ENCOUNTER → 2022-08-10 | Outpatient (CLI) | payer MEDICARE ==
[~2022-08-10] MED LIST changes: +ALBU8.5H INH; +B-12100021 PO; +MAGN500T12 PO; +SPIR1AER INH; +TERA2CAP3 PO
== END ==
LOC: M LABSMTC 10:44
PROVIDERS: ATTEND Anesthesiology
DX: Z01.812 Encounter for preprocedural laboratory examination (principal); Z11.52 Encounter for screening for COVID-19

== ENCOUNTER 2022-08-13 10:24 | Day surgery (SDC) | payer MEDICARE ==
[~2022-08-13] VITALS: Ht 182.9 cm; Wt 77.1 kg
[~2022-08-13 10:24] MED LIST changes: +NS 1,000 ML IV ONE
[2022-08-13] MEDS ORDERED: propofoL 200 MG/20 ML VIAL As Ordered ONE (11:20)
[2022-08-13] MEDS ORDERED: LIDOCAINE 2% 100MG/5ML SDV (FOR ANES.) As Ordered ONE (11:20)
[2022-08-13] MEDS ORDERED: fentaNYL 100 MCG/2 ML INJECTION As Ordered ONE (11:20)
[2022-08-13 12:45] VITALS: BP 105/74
== END 2022-08-13 12:52 | disposition home or self-care (01) ==
LOC: M OPP 10:24
PROVIDERS: ATTEND Surgery
DX: D12.2 Benign neoplasm of ascending colon (principal); K57.30 Diverticulosis of large intestine without perforation or abscess without bleeding; K64.1 Second degree hemorrhoids; K92.1 Melena; K29.70 Gastritis, unspecified, without bleeding; Z79.01 Long term (current) use of anticoagulants; Z79.02 Long term (current) use of antithrombotics/antiplatelets; Z79.51 Long term (current) use of inhaled steroids; Z79.891 Long term (current) use of opiate analgesic; Z79.899 Other long term (current) drug therapy; Z88.5 Allergy status to narcotic agent; I50.9 Heart failure, unspecified; I48.91 Unspecified atrial fibrillation; J44.9 Chronic obstructive pulmonary disease, unspecified; I11.0 Hypertensive heart disease with heart failure; G47.33 Obstructive sleep apnea (adult) (pediatric); Z95.0 Presence of cardiac pacemaker
CPT/HCPCS: 43235; 45385; 88305; J3010

== ENCOUNTER → 2022-10-14 | Outpatient (CLI) | payer MEDICARE ==
[~2022-10-14] MED LIST changes: -NS 1,000 ML IV ONE
== END ==
LOC: M PLAIMG 11:34
PROVIDERS: ATTEND Internal Medicine Pulmonary Disease
DX: R91.1 Solitary pulmonary nodule (principal)

== ENCOUNTER → 2023-05-06 | Outpatient (CLI) | payer MEDICARE | LOC: M PLAIMG 11:11 | PROVIDERS: ATTEND Internal Medicine Pulmonary Disease | DX: R91.1 Solitary pulmonary nodule (principal) ==

== ENCOUNTER → 2023-12-17 | Outpatient (CLI) | payer MEDICARE | LOC: M RAD 11:19 | PROVIDERS: ATTEND Internal Medicine Pulmonary Disease | DX: R91.8 Other nonspecific abnormal finding of lung field (principal); R91.1 Solitary pulmonary nodule; J47.9 Bronchiectasis, uncomplicated ==

== ENCOUNTER → 2025-02-03 | Outpatient (CLI) | payer MEDICARE ==
[~2025-02-03] MED LIST changes: +GABA-1172 PO; -GABA-282 PO
[2025-02-03 14:37] LABS: BASO # 0.0 10^3/uL (0.0-0.2); BASO % 0.3 % (0.0-1.0); EOS # 0.0 10^3/uL (0.0-0.5); EOS % 0.1 % (0.0-3.0); LYMPH # 1.5 10^3/uL (1.5-5.0); LYMPH % 10.6 % (24.0-44.0); MONO # 0.8 10^3/uL (0.0-0.8); MONO % 5.3 % (2.0-8.0); NEUTROPHILS # 11.7 10^3/uL (1.5-8.5); NEUTROPHILS % 82.4 % (36.0-66.0); PLATELET COUNT, AUTOMATED 284 10^3/uL (150-450)
[2025-02-03 14:40] LABS: ALT/SGPT 22.0 U/L (7.0-40); AST/SGOT 24.0 U/L (<34); CALCIUM LEVEL 9.5 MG/DL (8.3-10.6); CARBON DIOXIDE LEVEL 31.0 MMOL/L (20-31); CHLORIDE LEVEL 101.0 MMOL/L (98-107); CHOLESTEROL LEVEL 117.0 MG/DL (<200); CHOLESTEROL RISK RATIO 2.07 (<5); CREATININE FOR GFR 1.05 MG/DL (0.70-1.30); GLOMERULAR FILTRATION RATE 71.3 (>35); LDL CHOLESTEROL 38.1 MG/DL (<100); NON-HDL-C 60.5 MG/DL; POTASSIUM SERUM 5.0 MMOL/L (3.5-5.1); SODIUM LEVEL 143.0 MMOL/L (136-145); TRIGLYCERIDES LEVEL 112.0 MG/DL (<150)
[2025-02-03 14:45] LABS: ESTIMATED AVERAGE GLUCOSE 114.0 MG/DL (60-110)
== END ==
LOC: M WUC 11:51
PROVIDERS: ATTEND Internal Medicine
DX: J44.9 Chronic obstructive pulmonary disease, unspecified (principal); M54.9 Dorsalgia, unspecified; E78.2 Mixed hyperlipidemia; R73.01 Impaired fasting glucose; M47.816 Spondylosis without myelopathy or radiculopathy, lumbar region; M47.814 Spondylosis without myelopathy or radiculopathy, thoracic region

== ENCOUNTER 2025-02-27 10:32 | Emergency (ER) | payer MEDICARE ==
[~2025-02-27] VITALS: Ht 182.9 cm; Wt 71.5 kg
[2025-02-27 13:13] VITALS: TEMP 95.1
[2025-02-27] MEDS: PERCOCET 5MG/325MG TAB PO ONE (13:13)
[2025-02-27] MEDS ORDERED: PERC5TAB12 PO (14:34)
[2025-02-27 14:45] VITALS: BP 128/59; O2SAT 96
[2025-02-27] MEDS: OXYCODONE/APAP 5MG/325MG(HOME DOSE PACK) PO ONE (14:53)
== END 2025-02-27 15:16 | disposition home or self-care (01) ==
LOC: EDBD 10:32 → M ED 10:32
DX: S22.040A Wedge compression fracture of fourth thoracic vertebra, initial encounter for closed fracture (principal); S22.060A Wedge compression fracture of T7-T8 vertebra, initial encounter for closed fracture; M51.360 Other intervertebral disc degeneration, lumbar region with discogenic back pain only; M85.80 Other specified disorders of bone density and structure, unspecified site; M25.78 Osteophyte, vertebrae; J44.9 Chronic obstructive pulmonary disease, unspecified; Z95.0 Presence of cardiac pacemaker; Z86.79 Personal history of other diseases of the circulatory system; Z88.5 Allergy status to narcotic agent; Z79.52 Long term (current) use of systemic steroids; Z79.02 Long term (current) use of antithrombotics/antiplatelets; Z79.899 Other long term (current) drug therapy; Y92.9 Unspecified place or not applicable; Y93.89 Activity, other specified; Y99.9 Unspecified external cause status

== ENCOUNTER 2025-04-11 15:25 | Inpatient (IN) | payer MEDICARE ==
[~2025-04-11] VITALS: Ht 177.8 cm; Wt 65.3 kg
[~2025-04-11 15:25] MED LIST changes: +PERC5TAB12 PO
[2025-04-11 16:25] LABS: BASO # 0.1 10^3/uL (0.0-0.2); BASO % 0.5 % (0.0-1.0); EOS # 0.0 10^3/uL (0.0-0.5); EOS % 0.3 % (0.0-3.0); LYMPH # 1.1 10^3/uL (1.5-5.0); LYMPH % 8.4 % (24.0-44.0); MONO # 1.0 10^3/uL (0.0-0.8); MONO % 8.0 % (2.0-8.0); NEUTROPHILS # 10.3 10^3/uL (1.5-8.5); NEUTROPHILS % 80.8 % (36.0-66.0); PLATELET COUNT, AUTOMATED 300 10^3/uL (150-450)
[2025-04-11 16:39] LABS: CALCIUM LEVEL 8.4 MG/DL (8.3-10.6); CARBON DIOXIDE LEVEL 32 MMOL/L (20-31); CHLORIDE LEVEL 96 MMOL/L (98-107); CREATININE FOR GFR 0.73 MG/DL (0.70-1.30); GLOMERULAR FILTRATION RATE > 90.0 (>35); POTASSIUM SERUM 5.6 MMOL/L (3.5-5.1); SODIUM LEVEL 136 MMOL/L (136-145)
[2025-04-11] MEDS: IPRATROPIUM 0.5 MG/ALBUTEROL 2.5 MG INH SOL UD 3 ML NEB PRN (17:48)
[2025-04-11] MEDS: SYMBICORT 160/4.5MCG INHALER 6GM INH SCH (20:00)
[2025-04-11 20:48] LABS: KETONE, URINE AUTO RFX NEGATIVE (NEGATIVE); MUCUS, URINE RFX SMALL (NEGATIVE); RBC, URINE AUTO RFX 5 /HPF (0-3); SQUAM EPITHELIAL CELL UR AURFX 1 /HPF (0-6)
[2025-04-11 20:53] LABS: LEUKOCYTE ESTERASE UR AUTO RFX 2+ (NEGATIVE); NITRITE, URINE AUTO RFX POSITIVE (NEGATIVE); WBC, URINE AUTO RFX 20 /HPF (0-3)
[2025-04-11] MEDS ORDERED: ISOVUE-370 76% 100 ML VIAL As Ordered ONE (21:16)
[2025-04-11] MEDS ORDERED: FURO20TA2 PO (21:20)
[2025-04-11] MEDS ORDERED: MAGN400T35 PO (21:20)
[2025-04-11] MEDS ORDERED: FLUT1BLS8 INH (21:20)
[2025-04-11] MEDS ORDERED: ALBU2.5V10 INH (21:20)
[2025-04-11] MEDS ORDERED: BUDE0.5S6 INH (21:20)
[2025-04-11] MEDS ORDERED: HOME MED LIST COMPLETE! XX SCH (21:25)
[2025-04-11] MEDS ORDERED: ALBUTEROL SULFATE 2.5 MG/0.5 ML INH CONCENTRATE NEB SOLN NEB PRN (21:30)
[2025-04-11] MEDS ORDERED: PILL CUTTER 1 EACH XX PRN (21:55)
[2025-04-11] MEDS: GABAPENTIN 300 MG CAP PO SCH (21:57)
[2025-04-11] MEDS: APIXABAN 5 MG TAB PO SCH (21:57)
[2025-04-11] MEDS: PIPERACILLIN/TAZOBACTAM SOD 4.5 GM in DEXTROSE 5% (D5W) ADV/MINI-BAG 50 ML IV SCH (22:00)
[2025-04-11] MEDS ORDERED: cefTRIAXone SOD 2 GM in DEXTROSE 5% (D5W) ADV/MINI-BAG 50 ML IV SCH (22:00)
[2025-04-11] MEDS: IPRATROPIUM 0.5 MG/ALBUTEROL 2.5 MG INH SOL UD 3 ML NEB SCH (23:09)
[2025-04-11 23:37] LABS: ALT/SGPT 24 U/L (7.0-40); AST/SGOT 33 U/L (<34); CALCIUM LEVEL 8.4 MG/DL (8.3-10.6); CARBON DIOXIDE LEVEL 35 MMOL/L (20-31); CHLORIDE LEVEL 95 MMOL/L (98-107); CREATININE FOR GFR 0.72 MG/DL (0.70-1.30); GLOMERULAR FILTRATION RATE > 90.0 (>35); POTASSIUM SERUM 4.3 MMOL/L (3.5-5.1); SODIUM LEVEL 134 MMOL/L (136-145)
[2025-04-11] MEDS: LR 1,000 ML IV SCH (23:58)
[2025-04-12] VITALS (13 sets, daily range): BP systolic 96–118; BP diastolic 46–62; TEMP 97–97.3; O2SAT 88–100
[2025-04-12 06:19] LABS: PLATELET COUNT, AUTOMATED 262 10^3/uL (150-450)
[2025-04-12 06:50] LABS: CALCIUM LEVEL 8.5 MG/DL (8.3-10.6); CARBON DIOXIDE LEVEL 35 MMOL/L (20-31); CHLORIDE LEVEL 95 MMOL/L (98-107); CREATININE FOR GFR 0.76 MG/DL (0.70-1.30); GLOMERULAR FILTRATION RATE > 90.0 (>35); POTASSIUM SERUM 4.5 MMOL/L (3.5-5.1); SODIUM LEVEL 137 MMOL/L (136-145)
[2025-04-12] MEDS: TIOTROPIUM BROM 2.5MCG/ACTUATION 4GM INH INH SCH (07:38)
[2025-04-12] MEDS: ATORVASTATIN 20 MG TAB PO SCH (09:53)
[2025-04-12] MEDS: FUROSEMIDE 20 MG TAB PO SCH (09:53)
[2025-04-12] MEDS: TERAZOSIN 1 MG CAP PO SCH (09:54)
[2025-04-12] MEDS: MIRALAX *UNIT DOSE* 17 GM PACKET PO SCH (12:22)
[2025-04-12 15:36] LABS: PSA SCREENING 0.7 NG/ML (< 4.00)
[2025-04-13] VITALS (7 sets, daily range): BP systolic 90–108; BP diastolic 50–57; TEMP 97.2–97.7; O2SAT 88–97
[2025-04-13 07:11] LABS: PLATELET COUNT, AUTOMATED 285 10^3/uL (150-450)
[2025-04-13 07:31] LABS: CALCIUM LEVEL 8.3 MG/DL (8.3-10.6); CARBON DIOXIDE LEVEL 33.0 MMOL/L (20-31); CHLORIDE LEVEL 96.0 MMOL/L (98-107); CREATININE FOR GFR 0.95 MG/DL (0.70-1.30); GLOMERULAR FILTRATION RATE 80.4 (>35); POTASSIUM SERUM 3.8 MMOL/L (3.5-5.1); SODIUM LEVEL 136.0 MMOL/L (136-145)
[2025-04-13] MEDS: LR 1,000 ML IV ONE (08:45)
[2025-04-13] MEDS: ACETAMINOPHEN 500 MG TAB PO PRN (14:40)
[2025-04-14 04:05] VITALS: BP 108/62; TEMP 97.2; O2SAT 97
[2025-04-14 06:40] LABS: PLATELET COUNT, AUTOMATED 293 10^3/uL (150-450)
[2025-04-14 07:03] LABS: CALCIUM LEVEL 8.4 MG/DL (8.3-10.6); CARBON DIOXIDE LEVEL 33.0 MMOL/L (20-31); CHLORIDE LEVEL 96.0 MMOL/L (98-107); CREATININE FOR GFR 0.79 MG/DL (0.70-1.30); GLOMERULAR FILTRATION RATE 89.3 (>35); POTASSIUM SERUM 4.1 MMOL/L (3.5-5.1); SODIUM LEVEL 137.0 MMOL/L (136-145)
[2025-04-14 08:23] VITALS: BP 116/60; TEMP 97.2; O2SAT 95
[2025-04-14 12:00] VITALS: BP 116/60; TEMP 97.2; O2SAT 95
[2025-04-14 20:34] VITALS: BP 109/58; TEMP 97.7; O2SAT 94
[2025-04-14 21:45] VITALS: O2SAT 94
[2025-04-14 23:24] VITALS: BP 118/61; TEMP 97.5; O2SAT 96
[2025-04-15 04:01] VITALS: BP 101/55; TEMP 97.5; O2SAT 98
[2025-04-15 05:54] LABS: PLATELET COUNT, AUTOMATED 296 10^3/uL (150-450)
[2025-04-15 06:17] LABS: CALCIUM LEVEL 8.7 MG/DL (8.3-10.6); CARBON DIOXIDE LEVEL 35.0 MMOL/L (20-31); CHLORIDE LEVEL 99.0 MMOL/L (98-107); CREATININE FOR GFR 0.83 MG/DL (0.70-1.30); GLOMERULAR FILTRATION RATE 87.9 (>35); POTASSIUM SERUM 4.3 MMOL/L (3.5-5.1); SODIUM LEVEL 137.0 MMOL/L (136-145)
[2025-04-15 07:44] VITALS: O2SAT 90
[2025-04-15 08:00] VITALS: BP 130/66; TEMP 97.3; O2SAT 93
[2025-04-15 09:28] VITALS: BP 127/65
[2025-04-15 12:00] VITALS: BP 113/67; TEMP 97.3; O2SAT 99
[2025-04-15] MEDS ORDERED: BISACODYL 10 MG SUPP PR PRN (13:50)
[2025-04-15] MEDS: HYDROMORPHONE HCL 0.5 MG/0.5 ML SYRINGE IV PRN (21:10)
[2025-04-15] MEDS: IPRATROPIUM 0.5 MG/ALBUTEROL 2.5 MG INH SOL UD 3 ML NEB PRN (21:20)
[2025-04-16] MEDS: LORazepam 1 MG TAB PO PRN (00:52)
[2025-04-16] MEDS: SCOPOLAMINE 1MG TRANSDERMAL PATCH TOP PRN (05:40)
[2025-04-16] MEDS: HYDROMORPHONE HCL 0.5 MG/0.5 ML SYRINGE IV PRN (15:34)
[2025-04-17] MEDS: ONDANSETRON 4MG 2ML VIAL IV PRN (06:43)
[2025-04-17 13:06] LABS: PROTEIN CREATININE RATIO 117 mg/g creat (25-148); T PROTEIN CREATININE RATIO 0.117 (0.025-0.148); UPEP CREATININE 128 mg/dL (20-320); UPEP TOTAL PROTEIN 15 mg/dL (5-25)
[2025-04-17] MEDS: HYDROmorphone 2 MG TAB PO SCH (13:14)
[2025-04-17] MEDS: HYOSCYAMINE SULFATE 0.125 MG SUBL TABLET PO PRN (13:17)
[2025-04-17] MEDS: LIDOCAINE 2% 5 ML JELLY UROJET TOP ONE (17:42)
[2025-04-18] MEDS: ATROPINE SULFATE 1% OPHTH SOLN 2 ML BTL SL PRN (02:54)
[2025-04-18 08:36] LABS: UPEP ALBUMIN 28 %; URINE ALPHA 1 GLOBULIN 7 %; URINE ALPHA 2 GLOBULIN 22 %; URINE BETA GLOBULIN 16 %; URINE GAMMA GLOBULIN 28 %
[2025-04-18] MEDS: HYDROmorphone 2 MG TAB PO PRN (13:59)
[2025-04-18] MEDS ORDERED: **hydrALAZINE HCL** 25 MG TAB PO ONE (16:35)
[2025-04-19] MEDS: HYDROmorphone 2 MG TAB PO ONE (22:04)
[2025-04-20] MEDS ORDERED: ACET-683 PO (07:52)
[2025-04-20] MEDS ORDERED: HYOS125TA PO (07:52)
[2025-04-20] MEDS ORDERED: IPRA0.00 NEB (07:52)
[2025-04-20] MEDS ORDERED: ATIV1TAB10 PO (07:52)
[2025-04-20] MEDS ORDERED: MORP1SOL5 PO (07:52)
[2025-04-20] MEDS ORDERED: BISA10SU PR (07:55)
[2025-04-20] MEDS ORDERED: ATRO2DRO4 SL (07:55)
[2025-04-20] MEDS ORDERED: DILA1LIQ2 PO (08:11)
[2025-04-20] MEDS ORDERED: DILA2TAB6 PO (08:26)
== END 2025-04-20 10:02 | disposition hospice, inpatient (51) | DRG 871 ==
LOC: EDBD 15:25 → M ED 15:25 → M ED INP 22:39 → M MSPAV 04-12 00:13
PROVIDERS: ADMIT Student in an Organized Health Care Education/Training Program; ATTEND Internal Medicine Nephrology
DX: A41.9 Sepsis, unspecified organism (principal); G93.41 Metabolic encephalopathy; J18.9 Pneumonia, unspecified organism; E43 Unspecified severe protein-calorie malnutrition; C79.51 Secondary malignant neoplasm of bone; J47.0 Bronchiectasis with acute lower respiratory infection; N39.0 Urinary tract infection, site not specified; Z68.1 Body mass index [BMI] 19.9 or less, adult; J96.11 Chronic respiratory failure with hypoxia; J44.1 Chronic obstructive pulmonary disease with (acute) exacerbation; M84.412A Pathological fracture, left shoulder, initial encounter for fracture; C34.11 Malignant neoplasm of upper lobe, right bronchus or lung; J44.0 Chronic obstructive pulmonary disease with (acute) lower respiratory infection; K21.9 Gastro-esophageal reflux disease without esophagitis; E78.5 Hyperlipidemia, unspecified; Z79.01 Long term (current) use of anticoagulants; R19.7 Diarrhea, unspecified; R91.1 Solitary pulmonary nodule; Z95.0 Presence of cardiac pacemaker; G89.29 Other chronic pain; N40.1 Benign prostatic hyperplasia with lower urinary tract symptoms; R31.9 Hematuria, unspecified; I10 Essential (primary) hypertension; G89.3 Neoplasm related pain (acute) (chronic); K57.90 Diverticulosis of intestine, part unspecified, without perforation or abscess without bleeding; I48.91 Unspecified atrial fibrillation; G47.33 Obstructive sleep apnea (adult) (pediatric); R62.7 Adult failure to thrive; Z87.891 Personal history of nicotine dependence; Z88.5 Allergy status to narcotic agent; Z79.899 Other long term (current) drug therapy; Z51.5 Encounter for palliative care

== ENCOUNTER 2025-04-14 08:31 | Outpatient (RCR) | payer MEDICARE ==
[~2025-04-14 08:31] MED LIST changes: +ALBU2.5V10 INH; +BUDE0.5S6 INH; +FLUT1BLS8 INH; +FURO20TA2 PO; +MAGN400T35 PO
[2025-04-20] MEDS ORDERED: IPRA0.00 NEB (07:52)
[2025-04-20] MEDS ORDERED: ACET-683 PO (07:52)
[2025-04-20] MEDS ORDERED: MORP1SOL5 PO (07:52)
[2025-04-20] MEDS ORDERED: ATIV1TAB10 PO (07:52)
[2025-04-20] MEDS ORDERED: HYOS125TA PO (07:52)
[2025-04-20] MEDS ORDERED: ATRO2DRO4 SL (07:55)
[2025-04-20] MEDS ORDERED: BISA10SU PR (07:55)
[2025-04-20] MEDS ORDERED: DILA1LIQ2 PO (08:11)
[2025-04-20] MEDS ORDERED: DILA2TAB6 PO (08:26)
== END 2025-05-12 ==
LOC: M ONCR 08:31
PROVIDERS: ATTEND General Practice
DX: Z51.0 Encounter for antineoplastic radiation therapy (principal); C79.51 Secondary malignant neoplasm of bone; Z53.8 Procedure and treatment not carried out for other reasons